=== PATIENT | female | born 1960 | race Caucasian/White ===

== ENCOUNTER → 2018-12-24 19:12 | Outpatient (REF) | payer OTHER, MEDICAID, SELFPAY | LOC: LAB 19:12 | PROVIDERS: Family Provider Physician Assistant Medical; PCP Physician Assistant Medical; Visit Provider Physician Assistant Medical | DX: Z01.84 Encounter for antibody response examination (principal) | CPT/HCPCS: 36415; 86735; 86762; 86765 ==